=== PATIENT | female | born 2000 | race Caucasian/White ===

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

== ENCOUNTER 2018-08-28 17:17 | Emergency (ER) | payer SELFPAY ==
[~2018-08-28] VITALS: Ht 165.1 cm; Wt 78.6 kg
[~2018-08-28 17:17] MED LIST changes: +NAPR-985 PO
[2018-08-28 17:20] VITALS: BP 153/77; PULSE 121; RESP 18; Ht 165.1 cm; Wt 78.6 kg
== END 2018-08-28 19:00 | disposition left against medical advice (07) ==
LOC: E/R 17:17
DX: Z53.21 Procedure and treatment not carried out due to patient leaving prior to being seen by health care provider (principal)

== ENCOUNTER 2018-12-31 15:09 | Emergency (ER) | payer OTHER ==
[~2018-12-31] VITALS: Ht 175.3 cm; Wt 72.0 kg
[2018-12-31 15:15] VITALS: Ht 175.3 cm; Wt 72.0 kg
--- NOTE | 2018-12-31 18:45 | ERD ---
ER Documentation Chief Complaint Chief Complaint pt was at work when sudden onset of chest/epigastric pain x 3 mins HPI 18-year-old female with no significant past medical history presents to the ED with complaints of intermittent episodes of shortness of breath for the past several months. She states that she was working today when she experienced sharp right-sided chest pain, which lasted for 3 seconds and spontaneously relieved. She states she had a similar episode 1 week ago and states the chest pain at that time migrated to her left chest. She does state that she recently increase her caffeine intake. She states she drinks a lot of coffee and monster. She is currently chest pain-free. Denies any nausea, vomiting, diaphoresis or recent URI type symptoms. She denies any recent stress. Denies alcohol or cigarette use. ROS All systems reviewed and are negative except as per history of present illness. Medications Home Meds Active Scripts Naproxen* (Naprosyn*) 500 Mg Tablet, 500 MG PO BID PRN for PAIN AND/OR INFLAMMATION, #30 TAB Prov:KASEY JAUREGUI PA-C 09/07/16 Ibuprofen* (Motrin*) 600 Mg Tab, 600 MG PO Q6H PRN for PAIN AND OR ELEVATED TEMP, #30 TAB Prov:FAIZA SANDRA NP 07/13/15 Allergies Allergies: Coded Allergies: No Known Allergy (Unverified , 07/13/15) PMhx/Soc Medical and Surgical Hx: pt denies Surgical Hx History of Surgery: No Anesthesia Reaction: No Hx Neurological Disorder: No Hx Respiratory Disorders: No Hx Cardiac Disorders: No Hx Psychiatric Problems: No Hx Miscellaneous Medical Probl: No Hx Alcohol Use: No Hx Substance Use: No Hx Tobacco Use: No Smoking Status: Never smoker FmHx Family History: No diabetes Physical Exam Vitals Vital Signs Date Temp Pulse Resp B/P (MAP) Pulse Ox O2 O2 Flow FiO2 Time Delivery Rate 12/31/18 98.3 61 18 127/64 98 15:15 (85) Physical Exam Const: No acute distress Head: Atraumatic Eyes: Normal Conjunctiva ENT: Normal External Ears, Nose and Mouth. Neck: Full range of motion. No meningismus. Resp: Clear to auscultation bilaterally Cardio: Regular rate and rhythm, no murmurs Abd: Soft, non tender, non distended. Normal bowel sounds Skin: No petechiae or rashes Back: No midline or flank tenderness Ext: No cyanosis, or edema Neur: Awake and alert Psych: Normal Mood and Affect Procedures/MDM EMERGENT IMAGING: Chest X-ray 1V Interpreted by Dr. Mckinney Soft Tissue: No acute abnormalities Bones: No acute abnormalities Mediastinum/Cardiac Silhouette/Lungs: No acute abnormalities PROCEDURES: 12-lead EKG interpretation as interpreted by Dr. Mckinney NSR at 61 bpm w/ sinus arrhythmia Normal axis Normal intervals No acute ST or T wave changes suggestive of acute ischemia or STEMI. MEDICAL DECISION MAKING: This is a 18-year-old female who presents with intermittent chest pain or shortness of breath. She has no hypoxia, vital signs are normal. Lung sounds and physical exam are unremarkable. EKG and chest x-rays are also normal. I have low suspicion for MN/ACS, PE/DVT or any other emergent pathology. I suspect that patient's symptoms are related to her recent increase in caffeine intake/anxiety. She remained chest pain-free during her duration of stay here in the department. Recommended decreasing caffeine intake. Follow-up with the regular doctor in 1 week, return here for any new or worsening symptoms. PRESCRIPTIONS: None SPECIALIST FOLLOW UP RECOMMENDED: None Patient has been advised to follow up with primary care in 1-2 days. Departure Diagnosis: Primary Impression: Atypical chest pain Additional Impression: Anxiety Condition: Stable Patient Instructions: Anxiety Reaction CHRISTINA JANSEN PA-C Dec 31, 2018 18:44
[2018-12-31 21:14] VITALS: BP 113/73; PULSE 66; RESP 16
== END 2018-12-31 21:16 | disposition home or self-care (01) ==
LOC: FTE 15:09
DX: F41.9 Anxiety disorder, unspecified (principal); R07.89 Other chest pain
CPT/HCPCS: 71045; Z7502; 93005